=== PATIENT | female | born 1935 | race Caucasian/White ===

== ENCOUNTER → 2017-05-02 | Outpatient (CLI) | payer OTHER ==
[~2017-05-02] MED LIST: APAP650 PO; CALCIUM 600 +1 EAC1 PO; COZAAR100 MG PO; FOLTX TABLET1 EACH PO; LISINOPRIL20 MG PO; LOPRESSOR 50 MG50 M1 PO; MULTIVITAMINS1 EAC7 PO; PLAVIX 75 MG TA75 M1 PO; SIMVASTATIN20 MG PO; TRAMADOL 50 MG50 MG PO; ZOLOFT 50 MG TA50 MG PO
== END ==
LOC: RAD 08:39
DX: Z12.31 Encounter for screening mammogram for malignant neoplasm of breast (principal)

== ENCOUNTER → 2018-08-23 | Outpatient (CLI) | payer OTHER | LOC: CAT 10:13 | DX: Z13.6 Encounter for screening for cardiovascular disorders (principal); E78.00 Pure hypercholesterolemia, unspecified ==

== ENCOUNTER → 2018-10-22 | Outpatient (CLI) | payer OTHER | LOC: MRI 09:45 | DX: M47.26 Other spondylosis with radiculopathy, lumbar region (principal); M41.86 Other forms of scoliosis, lumbar region; M48.061 Spinal stenosis, lumbar region without neurogenic claudication; M51.16 Intervertebral disc disorders with radiculopathy, lumbar region ==

== ENCOUNTER → 2019-03-27 | Outpatient (CLI) | payer OTHER ==
[~2019-03-27] VITALS: Ht 162.6 cm; Wt 59.9 kg
[~2019-03-27] MED LIST changes: +LISINOPRIL40 MG PO; +METOPROLOL TART25 MG PO; +SERTRALINE HCL100 MG PO; +SPIRONOLACTONE25 M1 PO; +VITAMIN B-121000 MC3 PO
--- NOTE | ~2019-03-27 | P ---
[facility] [place] [address] PROCEDURE REPORT Name: KAYLIN SALGUERO Room #: [facility] [id number] Admission: 03/27/19 ������������������ Attend Phys: Yo Ho Discharge: ������������������ Date of : 37 Report #: [id number] THIS REPORT FOR: //name// CC: Kenisha Dupree DATE OF SERVICE: 03/27/2019 PROCEDURE PERFORMED: Upper endoscopy. HISTORY OF PRESENT ILLNESS: The patient is an 83-year-old female who apparently in [place] several months ago had back surgery. She was placed on Motrin and steroids after her surgery, had a coffee-ground emesis and underwent an upper endoscopy at that time showing ulcers. She is not sure if this was duodenal or gastric. This did not require blood transfusions. She does have a history of long-term Plavix use prior and since this procedure, she was placed on Protonix for approximately 6-8 weeks. She is no longer taking Protonix. She denies any symptoms of abdominal pain. No further nausea, vomiting or bleeding. No melena. No dysphagia. The patient states she was tested for H. pylori, which was negative at that time in [place]. DESCRIPTION OF PROCEDURE: The risks and benefits of the procedure were explained to the patient, those risks including but not limited to bleeding, perforation and the risk of sedation. She understood these risks and gave informed consent. Sedation was given using propofol. Next, using Olympus upper endoscope, the scope was placed in the patient's mouth and advanced under direct vision through the esophagus, stomach and into the second portion of the duodenum. The upper and mid esophagus was normal in appearance. In the distal esophagus, grade A erosive esophagitis was noted. No evidence of bleeding. Overall, there was a mild gastritis noted in the body and antrum. No evidence of ulcerations or erosions. The pylorus was normal and patent. In the duodenal bulb, several small 3 mm clean white based ulcers were noted. No evidence of bleeding. There was a mild duodenitis also noted. The second portion of the duodenum was normal. The scope was then withdrawn and the procedure terminated. The patient tolerated the procedure well. IMPRESSION: 1. Duodenitis with small duodenal ulcers, nonbleeding. 2. Gastritis. 3. Grade A erosive esophagitis. RECOMMENDATIONS: I would recommend long-term Protonix as the patient has ongoing ulcerations, this may be secondary to Plavix, which she will need to be on long-term. There is no evidence of bleeding at this time. She stated that H. pylori was tested in the past that was negative. [address] [address] PROCEDURE REPORT Name: KAYLIN SALGUERO Room #: REG ROMAN Marte#: [id number] Admission: 03/27/19 ������������������ Attend Phys: Yo Ho Discharge: ������������������ Date of : 37 Report #: [id number] Thank you for allowing me to participate in her care. ��������������������������������������������� ���������������������������������������� By: ��������������������������������������������� Raven: 03/27/19 1155 0011 Yo Dupree MD /gibson
== END | disposition home or self-care (01) ==
LOC: GI 08:59
DX: K29.80 Duodenitis without bleeding (principal); K26.9 Duodenal ulcer, unspecified as acute or chronic, without hemorrhage or perforation; K29.70 Gastritis, unspecified, without bleeding; K22.10 Ulcer of esophagus without bleeding; I10 Essential (primary) hypertension; E78.5 Hyperlipidemia, unspecified; F32.9 Major depressive disorder, single episode, unspecified; Z85.828 Personal history of other malignant neoplasm of skin; Z90.710 Acquired absence of both cervix and uterus; Z98.890 Other specified postprocedural states; Z98.41 Cataract extraction status, right eye; Z98.42 Cataract extraction status, left eye; Z86.73 Personal history of transient ischemic attack (TIA), and cerebral infarction without residual deficits; Z79.899 Other long term (current) drug therapy; Z88.0 Allergy status to penicillin; Z88.2 Allergy status to sulfonamides; Z88.6 Allergy status to analgesic agent; Z88.8 Allergy status to other drugs, medicaments and biological substances
CPT/HCPCS: 62110; 62900

== ENCOUNTER → 2019-07-03 | Outpatient (CLI) | payer OTHER | LOC: RAD 14:27 | DX: Z12.31 Encounter for screening mammogram for malignant neoplasm of breast (principal) ==

== ENCOUNTER → 2019-07-05 | Outpatient (CLI) | payer OTHER | LOC: ULTRA 11:06 → RAD 11:06 | DX: N60.02 Solitary cyst of left breast (principal) ==

== ENCOUNTER → 2020-01-20 | Outpatient (CLI) | payer OTHER | LOC: BC 09:49 | DX: R92.8 Other abnormal and inconclusive findings on diagnostic imaging of breast (principal) ==

== ENCOUNTER → 2021-05-10 | Outpatient (CLI) | payer OTHER | LOC: SJCVC 14:09 | PROVIDERS: ATTEND Internal Medicine | DX: R94.31 Abnormal electrocardiogram [ECG] [EKG] (principal); R00.1 Bradycardia, unspecified; R93.1 Abnormal findings on diagnostic imaging of heart and coronary circulation; E78.5 Hyperlipidemia, unspecified; I65.23 Occlusion and stenosis of bilateral carotid arteries; I12.9 Hypertensive chronic kidney disease with stage 1 through stage 4 chronic kidney disease, or unspecified chronic kidney disease; N18.31 Chronic kidney disease, stage 3a; M19.90 Unspecified osteoarthritis, unspecified site; Z88.1 Allergy status to other antibiotic agents; Z88.0 Allergy status to penicillin; Z88.2 Allergy status to sulfonamides; Z88.8 Allergy status to other drugs, medicaments and biological substances ==

== ENCOUNTER → 2021-05-27 | Outpatient (CLI) | payer OTHER | LOC: NUC 09:04 | PROVIDERS: ATTEND Internal Medicine | DX: Z12.31 Encounter for screening mammogram for malignant neoplasm of breast (principal); M85.88 Other specified disorders of bone density and structure, other site; E28.39 Other primary ovarian failure ==

== ENCOUNTER → 2021-10-26 | Outpatient (CLI) | payer OTHER | LOC: SJCVCIMAG 08:12 | PROVIDERS: ATTEND Internal Medicine | DX: I08.8 Other rheumatic multiple valve diseases (principal); R00.1 Bradycardia, unspecified; R93.1 Abnormal findings on diagnostic imaging of heart and coronary circulation; E78.5 Hyperlipidemia, unspecified; I65.23 Occlusion and stenosis of bilateral carotid arteries; I12.9 Hypertensive chronic kidney disease with stage 1 through stage 4 chronic kidney disease, or unspecified chronic kidney disease; N18.31 Chronic kidney disease, stage 3a; Z88.0 Allergy status to penicillin; Z88.2 Allergy status to sulfonamides; Z88.8 Allergy status to other drugs, medicaments and biological substances; Z79.899 Other long term (current) drug therapy ==